=== PATIENT | male | born 1960 | race Caucasian/White ===

== ENCOUNTER 2024-09-25 12:18 | Inpatient (IN) | payer OTHER ==
[~2024-09-25] VITALS: Ht 182.9 cm; Wt 98.5 kg
[2024-09-25] MEDS: CeFAZolin 2 GM/DEXTROSE 50 ML IV ONE (11:00)
[~2024-09-25 12:18] MED LIST: ACET-2459 PO; ACETAMINOPHEN/ISO-OSM 1000 MG/100 ML BOTTLE IV ONE; APIX2.5T PO; ATOR20TA PO; CALC500T37 PO; CARB1DRO OU; DEXAMETHASONE SOD PHOS 4 MG/ML VIAL IVP ONE; DICL100G60 TP; DUPI300P SQ; FINA-27 PO; FentaNYL CITRATE PF 100 MCG/2 ML VIAL IVP ONE; HYDROmorphone HCL 2 MG/ML SYRINGE IVP ONE; KETAMINE HCL 50 MG/ML 10 ML VIAL IVP ONE; KETO-99 OU; KETOROLAC TROMETHAMINE 60 MG/2 ML VIAL IM ONE; LEVA15HF3 IH; LEVE500T8 PO; LIDOCAINE/PF 2% 5 ML VIAL IM ONE; LOSA25TA41 PO; MECL-302 PO; METOPROLOL TARTRATE 5 MG/5 ML VIAL IVP ONE; MIDAZOLAM HCL 2 MG/2 ML VIAL IVP ONE; MOME13HF11 IH; MONT-35 PO; ONDANSETRON HCL 4 MG/2 ML VIAL IVP ONE; PHEN100C10 PO; PREG200C PO; PROPOFOL 1% 20 ML VIAL IVP ONE; PROPOFOL 1% ISO-OSM 1000 MG/100 ML BOTTLE IV ONE; ROCURONIUM BROMIDE 10 MG/ML 5 ML VIAL IVP ONE; SPIR25TA PO; SUGAMMADEX SODIUM 200 MG/2 ML VIAL IVP ONE; TADA5TAB5 PO
[2024-09-25] MEDS ORDERED: GELATIN SPONGE,ABSORBABLE 100 MM TP ONE (12:21)
[2024-09-25] MEDS ORDERED: SODIUM CHLORIDE 0.9% 500 ML IV ONE ×2 (12:33→13:08)
[2024-09-25] MEDS: CHLORHEXIDINE GLUCONATE 2% TOWELETTE [2'S/6'S] TP ONE (12:33)
[2024-09-25] MEDS: ETHYL ALCOHOL 62% ANTISEPTIC NASAL SANITIZER 0.6 ML AMPUL NASAL ONE (12:33)
[2024-09-25] MEDS ORDERED: PHENYLEPHRINE 200 MG/D5%-WATER 250 ML IV PRN (13:00)
[2024-09-25] MEDS ORDERED: CARV6 PO (13:04)
[2024-09-25] MEDS ORDERED: DOCU-385 PO (13:04)
[2024-09-25] MEDS: RINGERS SOLUTION,LACTATED 1,000 ML IV ONE (13:07)
[2024-09-25] MEDS ORDERED: CeFAZolin 2 GM/DEXTROSE 50 ML IV ONE (13:08)
[2024-09-25] MEDS: BUPIVACAINE HCL/PF 0.5% 30 ML VIAL ONE (14:33)
[2024-09-25] MEDS: VANCOMYCIN HCL 1 GM VIAL ONE ×2 (14:35)
[2024-09-25] MEDS: BUPIVACAINE LIPOSOME/PF 1.3%-13.3MG/ML SUSP 20 ML VIAL INJ ONE (14:35)
[2024-09-25] MEDS ORDERED: OxyCODONE HCL/ACETAMINOPHEN 5-325 MG TABLET PO PRN (16:45)
[2024-09-25] MEDS ORDERED: ALBUTEROL SULFATE 2.5 MG/0.5 ML NEB SOLUTION NEB PRN (16:45)
[2024-09-25] MEDS ORDERED: ZOLPIDEM TARTRATE 5 MG TABLET PO PRN (16:45)
[2024-09-25] MEDS ORDERED: ONDANSETRON HCL 4 MG/2 ML VIAL IVP PRN (16:45)
[2024-09-25 17:36] VITALS: BP 110/69; PULSE 86; RESP 18; TEMP 97.8; O2SAT 96
[2024-09-25] MEDS: MUPIROCIN CALCIUM 2% 22 GM OINTMENT ONE (17:52)
[2024-09-25 19:40] VITALS: BP 96/54; PULSE 90; RESP 18; TEMP 97.8; O2SAT 97
[2024-09-25] MEDS: LevETIRAcetam 500 MG TABLET PO SCH (20:32)
[2024-09-25] MEDS: DOCUSATE SODIUM 100 MG CAPSULE PO SCH (20:32)
[2024-09-25] MEDS: SODIUM CHLORIDE 0.9% 1,000 ML IV ONE (20:33)
[2024-09-25 21:56] VITALS: BP 99/62; PULSE 94; RESP 18; TEMP 97.8; O2SAT 96
[2024-09-25 22:57] LABS: APPEARANCE,URINE TURBID (CLEAR); BILIRUBIN,URINE NEGATIVE (NEGATIVE); COLOR,URINE YELLOW (YELLOW); GLUCOSE, URINE (UA) NEGATIVE (NEGATIVE); KETONES,URINE TRACE mg/dL (NEGATIVE); LEUKOCYTE ESTERASE ,URINE SMALL (NEGATIVE); NITRATE,URINE POSITIVE (NEGATIVE); OCCULT BLOOD,URINE TRACE (NEGATIVE); PROTEIN,URINE 30-70 mg/dL (NEGATIVE); SPECIFIC GRAVITIY, URINE 1.046 (1.003-1.030); UROBILINOGEN,URINE <=1.0 mg/dL (<=1.0)
[2024-09-25] MEDS: OxyCODONE HCL/ACETAMINOPHEN 5-325 MG TABLET PO PRN (23:06)
[2024-09-25 23:07] LABS: AMORPHOUS SEDIMENT,UR Many /LPF (None Seen); BACTERIA,URINE Few /HPF (None Seen); RBC,URINE 0-2 /HPF (0-2); SQUAMOUS EPITHELIAL CELL,UR Rare /LPF (None Seen)
[2024-09-26 05:36] VITALS: BP 98/60; PULSE 83; RESP 18; TEMP 98.1; O2SAT 100
[2024-09-26 06:12] LABS: BASOPHILS % (AUTO) 0.1 % (0.0-2.0); EOSINOPHILS % (AUTO) 0 % (1.0-6.0); HEMOGLOBIN 13.4 g/dL (13.5-17.5); LYMPHOCYTES # (AUTO) 0.3 K/uL (1.0-4.8); LYMPHOCYTES % (AUTO) 3.6 % (22.0-44.0); MEAN CORPUSCULAR HEMOGLOBIN 33.3 pg (26.0-34.0); MEAN CORPUSCULAR HGB CONC 34.5 G/dL (31.0-37.0); MEAN CORPUSCULAR VOLUME 97 fL (80-100); MONOCYTES # (AUTO) 0.5 K/uL (0.1-1.0); NEUTROPHILS # (AUTO) 8.4 K/uL (1.8-7.7); PLATELET COUNT (AUTO) 159 K/uL (150-450); RED BLOOD CELL COUNT(AUTO) 4.03 MIL/uL (4.50-5.90); RED CELL DISTRIBUTION WIDTH 12.8 % (11.5-14.5); WHITE BLOOD COUNT (AUTO) 9.2 K/uL (4.5-11.0)
[2024-09-26 06:46] LABS: ANION GAP 5 mmol/L (8-16); CARBON DIOXIDE 27 mmol/L (22-29); CHLORIDE 104 mmol/L (98-107); CREATININE 1.15 mg/dL (0.60-1.30); GLUCOSE,RANDOM 139 mg/dL (70-110); POTASSIUM 4.5 mmol/L (3.5-5.1); SODIUM SERUM 136 mmol/L (136-145); UREA NITROGEN, BLOOD 15 mg/dL (7-18)
[2024-09-26 06:47] LABS: CALCIUM, TOTAL 8.6 mg/dL (8.8-10.5); GLOMERULAR FILTR. RATE CALC > 60 mL/min (>60)
[2024-09-26 07:56] LABS: NEUTROPHILS % (AUTO) 91.3 % (40.0-70.0)
[2024-09-26 08:18] VITALS: BP 116/75; PULSE 79; RESP 20; TEMP 98.6; O2SAT 96
[2024-09-26] MEDS: FAMOTIDINE 20 MG TABLET PO SCH (08:37)
[2024-09-26 19:30] VITALS: BP 94/60; PULSE 93; RESP 18; TEMP 98.6; O2SAT 95
[2024-09-26] MEDS: ACETAMINOPHEN/CODEINE 300-30 MG TABLET PO PRN (20:10)
[2024-09-27 04:15] VITALS: BP 107/58; PULSE 82; RESP 18; TEMP 97.8; O2SAT 92
[2024-09-27] MEDS: MAGNESIUM HYDROXIDE SUSPENSION 30 ML UDCUP PO PRN (07:05)
[2024-09-27 08:00] VITALS: BP 117/68; PULSE 90; RESP 17; TEMP 98.6; O2SAT 97
[2024-09-27] MEDS: ACETAMINOPHEN 325 MG TABLET PO PRN (08:30)
[2024-09-27] MEDS: BISACODYL 10 MG RECTAL RECTAL SUPPOSITORY PR SCH (09:13)
[2024-09-27] MEDS ORDERED: BISACODYL 10 MG RECTAL RECTAL SUPPOSITORY PR PRN (09:30)
[2024-09-27] MEDS: CefTRIAXone 1 GM/DEXTROSE 50 ML IV ONE (12:05)
[2024-09-27] MEDS ORDERED: CIPR250T6 PO (12:35)
[2024-09-27] MEDS ORDERED: APIX5TAB PO (12:35)
[2024-09-27] MEDS ORDERED: FAMO20 PO (12:36)
[2024-09-27] MEDS ORDERED: ACET-2080 PO (12:39)
[2024-09-27] MEDS ORDERED: MAGN-169 PO (12:40)
[2024-09-27 20:12] VITALS: BP 130/64; PULSE 93; RESP 18; TEMP 98.5; O2SAT 98
[2024-09-27] MEDS: APIXABAN 5 MG TABLET PO SCH (20:18)
[2024-09-27] MEDS: CIPROFLOXACIN HCL 250 MG TABLET PO SCH (20:18)
[2024-09-28 04:32] VITALS: BP 105/60; PULSE 86; RESP 18; TEMP 98.7; O2SAT 98
[2024-09-28 07:56] VITALS: BP 97/62; PULSE 79; RESP 18; TEMP 98.7; O2SAT 98
[2024-09-28] MEDS: PREGABALIN 75 MG CAPSULE PO SCH (10:23)
[2024-09-28] MEDS: HYDROmorphone HCL 2 MG TABLET PO PRN (12:12)
[2024-09-28 19:45] VITALS: BP 133/73; PULSE 88; RESP 19; TEMP 98.2; O2SAT 98
[2024-09-29 05:05] VITALS: BP 108/59; PULSE 74; RESP 18; TEMP 98.1; O2SAT 95
[2024-09-29 07:43] LABS: BASOPHILS % (AUTO) 0.4 % (0.0-2.0); EOSINOPHILS % (AUTO) 2.5 % (1.0-6.0); HEMATOCRIT 41.1 % (41-53); HEMOGLOBIN 14.2 g/dL (13.5-17.5); LYMPHOCYTES % (AUTO) 16.7 % (22.0-44.0); MEAN CORPUSCULAR HEMOGLOBIN 32.8 pg (26.0-34.0); MEAN CORPUSCULAR HGB CONC 34.6 G/dL (31.0-37.0); MEAN CORPUSCULAR VOLUME 95 fL (80-100); MONOCYTES # (AUTO) 0.8 K/uL (0.1-1.0); MONOCYTES % (AUTO) 14.3 % (2.0-9.0); NEUTROPHILS # (AUTO) 3.8 K/uL (1.8-7.7); NEUTROPHILS % (AUTO) 66.1 % (40.0-70.0); PLATELET COUNT (AUTO) 170 K/uL (150-450); RED BLOOD CELL COUNT(AUTO) 4.34 MIL/uL (4.50-5.90); WHITE BLOOD COUNT (AUTO) 5.8 K/uL (4.5-11.0)
[2024-09-29 07:52] LABS: ANION GAP 9 mmol/L (8-16); CALCIUM, TOTAL 8.6 mg/dL (8.8-10.5); CARBON DIOXIDE 28 mmol/L (22-29); CHLORIDE 101 mmol/L (98-107); CREATININE 0.99 mg/dL (0.60-1.30); GLOMERULAR FILTR. RATE CALC > 60 mL/min (>60); GLUCOSE,RANDOM 105 mg/dL (70-110); POTASSIUM 4.3 mmol/L (3.5-5.1); SODIUM SERUM 138 mmol/L (136-145); UREA NITROGEN, BLOOD 15 mg/dL (7-18)
[2024-09-29 09:03] VITALS: BP 102/65; PULSE 86; RESP 20; TEMP 99.1; O2SAT 96
[2024-09-29 20:45] VITALS: BP 100/60; PULSE 90; RESP 18; TEMP 99.3; O2SAT 95
[2024-09-30 06:15] VITALS: BP 99/68; PULSE 77; RESP 18; TEMP 98.4; O2SAT 98
[2024-09-30 09:20] VITALS: BP 106/60; PULSE 74; RESP 18; TEMP 98.4; O2SAT 95
[2024-09-30] MEDS ORDERED: PHENYLEPHRINE/SHK LV/MIN OIL/PET 57 GM OINTMENT TP PRN (09:45)
[2024-09-30] MEDS ORDERED: PHEN28OI9 TP (15:48)
[2024-09-30 18:02] LABS: BASOPHILS % (AUTO) 0.9 % (0.0-2.0); EOSINOPHILS % (AUTO) 2.1 % (1.0-6.0); HEMATOCRIT 42.2 % (41-53); HEMOGLOBIN 14.2 g/dL (13.5-17.5); LYMPHOCYTES # (AUTO) 1.1 K/uL (1.0-4.8); LYMPHOCYTES % (AUTO) 17.2 % (22.0-44.0); MEAN CORPUSCULAR HEMOGLOBIN 32.1 pg (26.0-34.0); MEAN CORPUSCULAR HGB CONC 33.7 G/dL (31.0-37.0); MEAN CORPUSCULAR VOLUME 95 fL (80-100); MONOCYTES # (AUTO) 0.9 K/uL (0.1-1.0); MONOCYTES % (AUTO) 14.4 % (2.0-9.0); NEUTROPHILS # (AUTO) 4.2 K/uL (1.8-7.7); NEUTROPHILS % (AUTO) 65.4 % (40.0-70.0); PLATELET COUNT (AUTO) 215 K/uL (150-450); RED BLOOD CELL COUNT(AUTO) 4.43 MIL/uL (4.50-5.90); RED CELL DISTRIBUTION WIDTH 12.4 % (11.5-14.5); WHITE BLOOD COUNT (AUTO) 6.4 K/uL (4.5-11.0)
[2024-09-30 19:11] LABS: CALCIUM, TOTAL 8.8 mg/dL (8.8-10.5); CREATININE 1.29 mg/dL (0.60-1.30); POTASSIUM 4.4 mmol/L (3.5-5.1)
== END 2024-09-30 20:11 | DRG 451 ==
LOC: 4E 12:18 → 6S 19:19
PROVIDERS: ADMIT Neurological Surgery; ATTEND Neurological Surgery
PROC: 01NB0ZZ Release Lumbar Nerve, Open Approach (ICD-10-PCS; 2024-09-25)
PROC: 0QB00ZZ Excision of Lumbar Vertebra, Open Approach (ICD-10-PCS; 2024-09-25)
PROC: 0QB10ZZ Excision of Sacrum, Open Approach (ICD-10-PCS; 2024-09-25)
PROC: 4A11X4G Monitoring of Peripheral Nervous Electrical Activity, Intraoperative, External Approach (ICD-10-PCS; 2024-09-25)
PROC: 0SG30AJ Fusion of Lumbosacral Joint with Interbody Fusion Device, Posterior Approach, Anterior Column, Open Approach (ICD-10-PCS; principal; 2024-09-25 13:00)
DX: M71.38 Other bursal cyst, other site (principal); N39.0 Urinary tract infection, site not specified; I82.512 Chronic embolism and thrombosis of left femoral vein; I82.532 Chronic embolism and thrombosis of left popliteal vein; T83.518A Infection and inflammatory reaction due to other urinary catheter, initial encounter; N13.8 Other obstructive and reflux uropathy; J44.9 Chronic obstructive pulmonary disease, unspecified; K64.4 Residual hemorrhoidal skin tags; G89.29 Other chronic pain; N40.1 Benign prostatic hyperplasia with lower urinary tract symptoms; Y84.6 Urinary catheterization as the cause of abnormal reaction of the patient, or of later complication, without mention of misadventure at the time of the procedure; Z86.711 Personal history of pulmonary embolism; Z90.79 Acquired absence of other genital organ(s); Z79.899 Other long term (current) drug therapy; Z79.01 Long term (current) use of anticoagulants; Y92.89 Other specified places as the place of occurrence of the external cause
CPT/HCPCS: 80048; 81001; 85025; 87077; 87081; 87086; 87186; 88305; 93970; 97110; 97116; 97162; 97166; 97530; 97535; C9290; J0131; J0690; J0696; J1100; J1171; J1885; J2250; J2370; J2405; J2704; J3010; J3370; J3490; J7030; J7040; J7120